=== PATIENT | male | born 1985 | race Caucasian/White ===

== ENCOUNTER 2024-09-08 16:49 | Emergency (ER) | payer OTHER, SELFPAY ==
[2024-09-08 17:03] VITALS: BP 127/67; PULSE 82; TEMP 36.9; O2SAT 99; BMI 32.5
[2024-09-08] MEDS: LIDOCAINE HCL 1% 100 MG/10 ML MDV INJ (18:02)
--- NOTE | 2024-09-08 18:03 | PC.NURSE ---
suture cart in room. ER DR at bedside
[2024-09-08] MEDS: ADACEL DIPH,PERTUSS(ACELL),TET VAC/PF 0.5 ML ADULT SYRINGE IM (18:09)
--- NOTE | 2024-09-08 18:32 | ED.GENADUL1 ---
HPI HPI - General Adult General Chief complaint: Skin/Abscess/Foreign Body Stated complaint: UPPER EXTREMITY INJURY LACERATION Time Seen by Provider: 09/08/24 17:31 Source: patient Mode of arrival: walk-in History of Present Illness HPI narrative: 39-year-old male presents to the emergency department for an injury to his right thumb. He accidentally smashed it with a pipe when he was working at home. This happened less than an hour ago. His last tetanus shot was more than 10 years ago. No numbness or weakness and no other injury was sustained. Related Data Previous Rx's ?Medication ?Instructions ?Recorded cephalexin 500 mg capsule 500 mg PO QID 10 days #40 caps 09/08/24 Allergies Allergy/AdvReac Type Severity Reaction Status Date / Time No Known Drug Allergies Allergy Verified 09/08/24 17:09 Opioid HPI Opioid Management Most Recent Opioid Data: No Data to Display Review of Systems ROS Narrative A ten point review of systems is negative except as noted above. PFSH PFSH Social History Little interest or pleasure in doing things: not at all Feeling down, depressed, or hopeless: not at all Exam Narrative Exam Narrative: Nurses note and vital signs reviewed and patient is not hypoxic. General: The patient appears well and in no apparent distress. Patient is resting comfortably on cart. There is a dressing on his right thumb. Skin: Warm, dry, no pallor noted. There is no rash noted. Head: Normocephalic, atraumatic Eye: Normal conjunctiva, no drainage Ears, Nose, Mouth, and Throat: oral mucosa is moist. Nares patent. Cardiovascular: Regular Rate and Rhythm Respiratory: Patient is in no distress, no accessory muscle use GI: Soft and nontender Musculoskeletal: He has an obliquely oriented laceration over the IP joint of his right thumb on the extensor side. IP joint has full range of motion. The nail and nailbed are unaffected. No active bleeding and no other wound present. Neurological: A&O, normal speech Psychiatric: Cooperative Constitutional Vital Signs, click to edit/add: Last Vital Signs Temp 98.5 F 09/08/24 17:03 Pulse 82 09/08/24 17:03 Resp 18 09/08/24 17:03 BP 127/67 09/08/24 17:03 Pulse Ox 99 09/08/24 17:03 Course Vital Signs Vital signs: Vital Signs Temperature 98.5 F 09/08/24 17:03 Pulse Rate 82 09/08/24 17:03 Respiratory Rate 18 09/08/24 17:03 Blood Pressure 127/67 09/08/24 17:03 Pulse Oximetry 99 09/08/24 17:03 Temperature 98.5 F 09/08/24 17:03 Pulse Rate 82 09/08/24 17:03 Respiratory Rate 18 09/08/24 17:03 Blood Pressure 127/67 09/08/24 17:03 Pulse Oximetry 99 09/08/24 17:03 Medical Decision Making MDM Narrative Medical decision making narrative: The following procedure was performed by me. Thumb block was applied with 1% lidocaine without epinephrine resulting in complete skin anesthesia. The area was prepped with Betadine x 3 and draped sterilely. It was explored for foreign bodies none were found and then closed with three 5-0 Ethilon sutures resulting in good skin reapproximation and no complications. Complete hemostasis achieved. He tolerated the procedure well. 2 gauze dressing applied, application checked by me and found to be appropriate, he is neurovascular intact. He was sent home with a thumb splint that will be placed after the tube gauze dressing is removed tomorrow at his orthopedics appointment with Dr. Cr at 10:15 AM. He was prescribed Keflex. Treatment diagnosis and follow-up were discussed with the patient and his Differential Diagnosis Differential Diagnosis: Laceration, fracture Imaging Data Right hand: Radiologist's impression: Comminuted, mildly displaced fracture of the distal phalanx of the first digit Discharge Plan Discharge Chief Complaint: Skin/Abscess/Foreign Body Clinical Impression: Open fracture of right thumb Patient Disposition: Home, Self-Care Time of Disposition Decision: 18:31 Condition: Good Mode of Transportation: Private Vehicle Prescriptions / Home Meds: New cephalexin 500 mg capsule 500 mg PO QID 10 Days Qty: 40 0RF Print Language: Trinidadian Instructions: Thumb Fracture (ED) Referrals: JACK VICTORIA DO [Primary Care Provider] - 1 week
== END 2024-09-08 18:45 | disposition home or self-care (01) ==
PROVIDERS: Emergency Provider Emergency Medicine; PCP Family Medicine
DX: S62.521B Displaced fracture of distal phalanx of right thumb, initial encounter for open fracture (principal); W22.8XXA Striking against or struck by other objects, initial encounter; Z23 Encounter for immunization
CPT/HCPCS: 12001; 73130; 90471; 90715; 99283

== ENCOUNTER 2024-09-16 10:25 | Outpatient (OUT) | payer OTHER, SELFPAY ==
--- NOTE | 2024-09-16 10:26 | XR_ITS ---
The [address] [address] Patient Name: KARLA TEAGUE MRN: [id number] date: 1985 Sex: M Assigned Patient Location: Current Patient Location: Accession/Order Number: [id number] Exam Date: 09/16/2024 11:27 Report Date: 09/16/2024 11:29 At the request of: RILEY PEREZ MD Procedure: XR hand RT min 3V RIGHT HAND - 3 views CLINICAL DATA: Follow-up nondisplaced fracture of the thumb. COMPARISON: 09/08/2024 AP, lateral and oblique views were obtained. There is redemonstration of a fracture at the proximal metadiaphysis of the distal phalanx of the thumb. There is associated comminution. There are no significant displacement. No prominent interval callus formation is noted. There is no new fracture or dislocation. There are no significant soft tissue abnormalities. XR/XR hand RT min 3V IMPRESSION: STABLE FRACTURE AT THE DISTAL PHALANX OF THE THUMB. Impression dictated by: Evelia Vila M.D.09/16/2024 11:29 AM Dictation Location: [place] [address] Electronically authenticated by: [id number] Y Date: 09/16/2024 11:29
--- OUTSIDE RECORDS SUMMARY | 2024-09-16 10:32 | XMS_ITS | CCD ---
Author Organization [facility] Care Team Providers Care Care Assistant Name Role Phone MARKER, DR FORD Attending Unavailable MARKER, DR FORD Consulting Unavailable MARKER, DR FORD Admitting Unavailable MISC, DR YE Primary Care Unavailable SuhaRachelle Unavailable Medications Current Medications Medication Drug Class(es) Dates Sig (Normalized) Sig (Original) amoxicillin 875 mg oral tablet (1 source) Penicillin-class Antibacterial Start: 06-23-2022 take 1 tablet by mouth every twelve hours Amoxicillin 875 MG 1 tablet Orally every 12 hrs for 10 days Jun, Active Completed/Discontinued Medications Medication Drug Class(es) Dates Sig (Normalized) Sig (Original) Ketorolac (1 source) Nonsteroidal Anti-inflammatory Drug, Cyclooxygenase Inhibitor Start: 02-19-2019 Toradol per 15 mg Feb, 30 mg methylPREDNISolone (2 sources) Corticosteroid Start: 01-12-2017 Depo-Medrol 80 mg Dec, 80 mg Start: 12-14-2015 Depo-Medrol 80 mg Nov, 80 mg Triamcinolone (2 sources) Corticosteroid Start: 02-19-2019 KENALOG - 10 m g Feb, 40 mg Start: 11-27-2015 KENALOG - 10 m g Nov, 60 mg Problems Problem Classification Problem Date Documented Date Episodic/Chronic Administrative/social admission (1 source) Patient encounter status; Translations: [Persons encountering health services in other specified circumstances] Episodic Anxiety disorders (1 source) Anxiety; Translations: [Anxiety disorder, unspecified] Chronic Disorders of lipid metabolism (1 source) Hyperlipidemia; Translations: [Hyperlipidemia, unspecified] Chronic Disorders of teeth and jaw (4 sources) Other specified disorders of teeth and supporting structures; Translations: [OTH SPEC DISORDERS TEETH SUPP STRCT] Onset: 12-15-2020 Episodic Headache; including migraine (1 source) Sinus headache; Translations: [Headache] Episodic Immunizations and screening for infectious disease (2 sources) Contact with and (suspected) exposure to other viral communicable diseases; Translations: [Contact with and (suspected) exposure to other viral communicable diseases] Episodic Malaise and fatigue (1 source) Fatigue; Translations: [Other fatigue] Episodic Other upper respiratory infections (1 source) Streptococcal pharyngitis Episodic Residual codes; unclassified (1 source) Family history of ischemic heart disease; Translations: [Family history of ischemic heart disease and other diseases of the circulatory system] Episodic Residual codes; unclassified (1 source) Disorientated; Translations: [Disorientation, unspecified] Episodic Results Test Name Value Interpretation Reference Range Facil ity COVID/FLU/RSV RT-PCRon 06-23 SARS-CoV-2 (COVID-19) RNA MARSHALL+probe Ql (Unsp spec) Negative [facility] Other COVID/FLU/RSV RT-PCR Negative [facility] Other Quick Strepon 06-23-2022 S. pyogenes Org specific cx Ql (Throat) Positive [facility] Other Quick Strep [facility] Other Vital Signs Date Time Vital Sign Value Performing Clinician Facility 06-23-2022 11:15-0500 Body height 182.88 cm Rachelle Suha Other [facility] Other 06-23-2022 11:15-0500 Body mass index (BMI) [Ratio] 29.83 kg/m2 Rachelle Suha Other [facility] Other 06-23-2022 11:15-0500 Body temperature 99.5 [degF] Rachelle Suha Other [facility] Other 06-23-2022 11:15-0500 Body weight 99.79 kg Rachelle Suha Other [facility] Other 06-23-2022 11:15-0500 Diastolic blood pressure 71 mm[Hg] Rachelle Kingault Other [facility] Other 06-23-2022 11:15-0500 Respiratory rate 18 /min Rachelle Borden Other [facility] Other 06-23-2022 11:15-0500 SaO2% (BldA) [Mass fraction] 99 % Rachelle Borden Other [facility] Other 06-23-2022 11:15-0500 Systolic blood pressure 143 mm[Hg] Rachelle Suha Other [facility] Other Encounters Encounter Date Encounter Type Care Provider Facility Start: 06-23-2022 End: 06-23-2022 ambulatory Rachelle Suha Other [facility] Other Start: 06-23-2022 Office outpatient visit 25 minutes Rachelle Borden [facility] Start: 12-15-2020 End: 12-15-[address] LILIANA PAYNE Facility:[facility] Immunizations Immunization Date Immunization Notes Care Provider Fa cility NEGATED: Highlighted row has not occurred!07-16-2019 influenza, seasonal, injectable Patient Objection Rachelle Suha Other [facility] Other Payers Date Payer Category Payer Unknown [id number] 1958 Unknown [id number] Unknown [id number] Social History Date Type Detail Facility Sex Assigned At [facility] Other Evaluation note 06-23-2022 Note Date & Type Note Facility 06-23-2022 Evaluation note Encounter Date Diagnosis Assessment Notes Jun, Contact with and (suspected) exposure to other viral communicable diseases (ICD-10 - Z20.828) Jun, Strep pharyngitis (ICD-10 - J02.0) Symptoms presented in office today indicate Strep Throat. Take medications as directed. Saltwater gargles may help with pain and disrupts bacteria and viral infections. Continue tylenol/ibu for general discomfort. Encourage fluids. Symptoms should improve within the next 4-7 days. [facility] Other History general Narrative - Reported 12-17-2021 Note Date & Type Note Facility 12-17-2021 History general N arrative - Reported Type Surgical History Back Surgery 2010 Surgical History appendectomy 12/2021 Hospitalization History Back Surgery - [facility] [place] 2010 [facility] Other Summary Purpose Family History No Family History Records Found Advance Directives No Advanced Directives Records Found Additional Source Comments (unrecognized sect ion and content) No Status Records Found INFORMATION SOURCE (unrecogn ized section and content) DATE CREATED AUTHOR 12/17/2020 [facility] REASON FOR VISIT (unrecogniz ed section and content) B/A SORE THRAOT H/A FOR RECORDS PERTAINING TO PATIENTS WHO ARE OR HAVE BEEN ENROLLED IN A CHEMICAL DEPENDENCY/SUBSTANCEABUSE PROGRAM, SOME INFORMATION MAY BE OMITTED. This clinical summary was aggregated from multiple sources. Caution should be exercised in using it in the provision of clinical care. This summary normalizes information from multiple sources, and as a consequence, information in this document may materially change the coding, format and clinical context of patient data. In addition, data may be omitted in some cases. CLINICAL DECISIONS SHOULD BE BASED ON THE PRIMARY CLINICAL RECORDS. [facility]. provides no warranty or guarantee of the accuracy or completeness of information in this document.
== END 2024-09-16 10:26 | disposition home or self-care (01) ==
LOC: EC 10:25
PROVIDERS: PCP Family Medicine; Visit Provider Orthopaedic Surgery
DX: S62.524D Nondisplaced fracture of distal phalanx of right thumb, subsequent encounter for fracture with routine healing (principal)
CPT/HCPCS: 73130

== ENCOUNTER 2024-09-23 08:53 | Outpatient (OUT) | payer OTHER, SELFPAY ==
--- NOTE | 2024-09-23 | XR_ITS ---
The [place] [address] Patient Name: KARLA TEAGUE MRN: [id number] date: 1985 Sex: M Assigned Patient Location: Current Patient Location: Accession/Order Number: [id number] Exam Date: 09/23/2024 09:09 Report Date: 09/23/2024 09:10 At the request of: RILEY PEREZ MD Procedure: XR hand RT min 3V 3 views right hand plain film COMPARISON: 09/16/2024 HISTORY: Right first digit fracture. ACUTE FINDINGS: Subtle interval healing of first toe distal phalanx fracture. Stable alignment. DEGENERATIVE CHANGE: Unremarkable SOFT TISSUE FINDINGS: Unremarkable JOINT EFFUSION: None POSTOP CHANGES: None BONY MINERALIZATION: Adequate XR/XR hand RT min 3V IMPRESSION: Healing fracture with stable alignment Impression dictated by: Ted Choudhary M.D.09/23/2024 9:10 AM Dictation Location: [place] [address] Electronically authenticated by: [id number] Y Date: 09/23/2024 09:10
== END 2024-09-23 08:54 | disposition home or self-care (01) ==
LOC: EC 08:53
PROVIDERS: PCP Family Medicine; Visit Provider Orthopaedic Surgery
DX: S62.524D Nondisplaced fracture of distal phalanx of right thumb, subsequent encounter for fracture with routine healing (principal)
CPT/HCPCS: 73130